=== PATIENT | female | born 1940 | race Caucasian/White ===

== ENCOUNTER 2018-09-06 23:16 | Emergency (ER) | payer MEDICARE ==
[~2018-09-06] VITALS: Ht 154.9 cm; Wt 90.6 kg
[2018-09-06] MEDS ORDERED: OLME40TA12 PO (23:50)
[2018-09-06] MEDS ORDERED: NORT25CA78 PO (23:50)
[2018-09-06] MEDS ORDERED: PANT40TA5 PO (23:50)
[2018-09-06] MEDS ORDERED: POTA20PA25 PO (23:50)
[2018-09-06] MEDS ORDERED: LEVO150T5 PO (23:50)
[2018-09-06] MEDS ORDERED: ATEN50TA41 PO (23:58)
[2018-09-06] MEDS ORDERED: CARB1TAB22 PO (23:58)
[2018-09-06] MEDS ORDERED: DULO30CA2 PO (23:58)
[2018-09-06] MEDS ORDERED: LOPE2CAP PO (23:58)
[2018-09-06] MEDS ORDERED: MAGN300C PO (23:58)
[2018-09-06] MEDS ORDERED: CARV12.543 PO (23:58)
[2018-09-06] MEDS ORDERED: GABA100C PO (23:58)
[2018-09-06] MEDS ORDERED: ERGO500017 PO (23:58)
[2018-09-06] MEDS ORDERED: DULA1.5P SQ (23:58)
[2018-09-06] MEDS ORDERED: MONT10TA9 PO (23:58)
[2018-09-06] MEDS ORDERED: TRAM50TA2 PO (23:58)
[2018-09-06] MEDS ORDERED: GLIM1TAB2 PO (23:58)
[2018-09-07] MEDS ORDERED: SODIUM CHLORIDE FLUSH 10ML SYR IVF ONE
--- NOTE | 2018-09-07 00:16 | NUR ---
pt presented with c/o sob with tightness in the chest x 1 week, statrted when she arrived to [place] from [place]. monitors applied, siderails up x2, call light within reach. iv site started.
[2018-09-07 00:35] LABS: INTERNATIONAL NORMALIZED RATIO 0.97 (0.93-1.1); PROTHROMBIN TIME 10.2 Seconds (9.6-11.5)
[2018-09-07 00:39] LABS: ALANINE AMINOTRANSFERASE 6 U/L (12-78); ALBUMIN 3.3 g/dL (3.4-5.0); ANION GAP 6 mmol/L (5-15); CALCIUM 9.2 mg/dL (8.5-10.1); CHLORIDE 107 mmol/L (98-107); CREATININE 1.12 mg/dL (0.55-1.02)
[2018-09-07 00:40] LABS: BASOPHILS # (AUTO) 0.05 x10^3/uL (0-0.1); BASOPHILS % (AUTO) 0 % (0-1); EOSINOPHILS # (AUTO) 0.85 x10^3/uL (0-0.4); EOSINOPHILS % (AUTO) 8 % (1-7); LYMPHOCYTES # (AUTO) 3.14 x10^3/uL (1-3.4); LYMPHOCYTES % (AUTO) 28 % (22-44); MD NO; MEAN CORPUSCULAR HEMOGLOBIN 29.3 pg (27.0-34.8); MEAN CORPUSCULAR HGB CONC 31.6 g/dL (32.4-35.8); MEAN CORPUSCULAR VOLUME 92.8 fL (80-100); MEAN PLATELET VOLUME 7.9 fL (7.4-10.4); MONOCYTES % (AUTO) 8 % (2-9); NEUTROPHILS # (AUTO) 6.19 x10^3/uL (1.8-6.8); NEUTROPHILS % (AUTO) 56 % (42-75); PLATELET COUNT 338 x10^3/uL (130-400); RED CELL DISTRIBUTION WIDTH 15.3 % (9.6-15.2)
[2018-09-07 00:44] LABS: ALKALINE PHOSPHATASE 90 U/L (45-117); BILIRUBIN,TOTAL 0.4 mg/dL (0.2-1.0); TOTAL PROTEIN 7.4 g/dL (6.4-8.2); TROPONIN I < 0.015 ng/mL (0.000-0.045)
--- NOTE | 2018-09-07 02:04 | NUR ---
pt resting on gurney, denies needs, monitors in place, call light within reach. awaiting ct result
--- NOTE | 2018-09-07 03:09 | NUR ---
PT RESTING ON GURMESFIN, FAMILY AT BEDSIDE, MONITORS IN PLACE, CALL LIGHT CL REACH. AWAITING ADDITIONAL ORDER VQ SCAN
--- NOTE | 2018-09-07 04:12 | NUR ---
PT RESTING CALMLY, DENIES NEEDS, MONITORS IN PLACE, CALL LIGHT WITHIN REACH. AWAITING VQ SCAN
--- NOTE | 2018-09-07 05:28 | NUR ---
PT RESTING CALMLY, FAMILY AT BEDSIDE, DENIES NEEDS, MONITORS IN PLACE, CALL LIGHT WITHIN REACH. AWAITING VQ SCAN RESULT
[2018-09-07] MEDS ORDERED: DEXAMETHASONE 4 MG/ML, 1ML IVPush ONE (06:00)
[2018-09-07 06:08] VITALS: BP 155/70
== END 2018-09-07 06:34 | disposition home or self-care (01) ==
LOC: ED 09-07 06:20
DX: J20.9 Acute bronchitis, unspecified (principal); E87.1 Hypo-osmolality and hyponatremia; R91.8 Other nonspecific abnormal finding of lung field; I10 Essential (primary) hypertension; E11.9 Type 2 diabetes mellitus without complications; Z90.89 Acquired absence of other organs; Z90.49 Acquired absence of other specified parts of digestive tract; Z88.1 Allergy status to other antibiotic agents; Z91.041 Radiographic dye allergy status; Z88.2 Allergy status to sulfonamides
CPT/HCPCS: 36415; 71045; 71250; 78582; 80053; 83605; 83880; 84484; 85025; 85610; 85730; 87040; 93005; 96374; 99284; A9540; A9558; J1100